=== PATIENT | female | born 1990 | race African-American/Black ===

== ENCOUNTER 2017-10-22 13:04 | Emergency (ER) | payer SELFPAY ==
[~2017-10-22] VITALS: Ht 162.6 cm; Wt 58.0 kg
[2017-10-22 13:06] VITALS: BP 114/69
[2017-10-22] MEDS ORDERED: IBUPROFEN 600MG TABLET PO STA (13:36)
[2017-10-22] MEDS ORDERED: TETANUS, DIPHTHERIA, PERTUSSIS VAC/PF 0.5ML (>7YR OLD) IM ONE (13:45)
== END 2017-10-22 15:35 | disposition home or self-care (01) ==
LOC: ER 13:58
DX: H00.014 Hordeolum externum left upper eyelid (principal); H01.004 Unspecified blepharitis left upper eyelid
CPT/HCPCS: 90471; 90715; 99283